=== PATIENT | female | born 1970 | race African-American/Black ===

== ENCOUNTER 2022-05-30 12:51 | Inpatient (IN) | payer BC, MEDICAID ==
[2022-05-30] VITALS (12 sets, daily range): BP systolic 105–138; BP diastolic 53–90
[~2022-05-30] VITALS: Ht 167.6 cm; Wt 72.6 kg
[2022-05-30] MEDS ORDERED: ONDANSETRON HCL 4MG/2ML INJ IV STA ×2 (14:53→16:01)
[2022-05-30] MEDS ORDERED: MORPHINE SULFATE 4 MG/ML CPJ (NOT FOR IM USE) IV STA ×2 (14:53→16:01)
[2022-05-30] MEDS ORDERED: LEVETIRACETAM 1000MG PREMIX 100 ML IV ONE (15:15)
[2022-05-30] MEDS ORDERED: DEXAMETHASONE 4MG/ML 1ML VIAL IV ONE (15:15)
[2022-05-30 15:36] LABS: HEMATOCRIT. 32.6 % (36.0-48.0); HEMOGLOBIN. 10.8 g/dL (12.0-16.0); MEAN CORPUSCULAR HEMOGLOBIN 30.7 pg (28.0-32.0); MEAN CORPUSCULAR VOLUME 93.1 fL (81.0-99.0); MEAN PLATELET VOLUME 7.5 fl (7.4-10.4); PLATELET 147 x1000/uL (130-400); RED CELL DISTRIBUTION WIDTH 18.7 % (11.6-14.6)
[2022-05-30 15:38] LABS: CHLORIDE 107 mEq/L (98-107)
[2022-05-30 15:47] LABS: PROTHROMBIN TIME 10.7 sec (9.6-11.0)
[2022-05-30 15:52] LABS: CREATINE KINASE 68 IU/L (26-192)
[2022-05-30 16:13] LABS: CLARITY URINE CLEAR (CLEAR); COLOR URINE YELLOW (YELLOW); KETONES URINE TRACE (NEGATIVE); LEUKOCYTE ESTERASE URINE NEGATIVE (NEGATIVE); NITRITE URINE NEGATIVE (NEGATIVE); OCCULT BLOOD URINE NEGATIVE (NEGATIVE); PH URINE 5.5 (4.5-8.0); PROTEIN URINE 1+ (NEGATIVE); SPECIFIC GRAVITY URINE 1.015 (1.005-1.030)
[2022-05-30] MEDS ORDERED: CLONIDINE 0.1MG TABLET PO PRN (16:15)
[2022-05-30] MEDS ORDERED: MORPHINE SULFATE 2 MG/ML CPJ (NOT FOR IM USE) IV PRN (16:15)
[2022-05-30] MEDS ORDERED: ACETAMINOPHEN 325MG TABLET PO PRN (16:15)
[2022-05-30] MEDS ORDERED: IPRATROPIUM/ALBUTEROL 0.5-3(2.5)MG/3ML NEB HHN PRN (16:15)
[2022-05-30] MEDS ORDERED: DIPHENHYDRAMINE 50MG/ML VIAL IV PRN (16:15)
[2022-05-30] MEDS ORDERED: NALOXONE HCL 0.4MG/ML VIAL IV PRN (16:15)
[2022-05-30] MEDS ORDERED: SODIUM CHLORIDE 0.9% 1,000 ML IV SCH (16:15)
[2022-05-30] MEDS ORDERED: ONDANSETRON HCL 4MG/2ML INJ IV PRN (16:15)
[2022-05-30 17:30] LABS: PLATELET ESTIMATE NORMAL
[2022-05-30] MEDS: DEXT 5%/LACTATED RINGERS 1,000 ML IV SCH (19:00)
[2022-05-30] MEDS ORDERED: LEVETIRACETAM 500MG/5ML CUP PO SCH (21:00)
[2022-05-30] MEDS ORDERED: NICARDIPINE 100 MG in SODIUM CHLORIDE 0.9% 60 ML IV PRN (21:30)
[2022-05-30] MEDS: LEVETIRACETAM 500MG PREMIX 100 ML IV SCH (22:56)
[2022-05-30] MEDS: DEXAMETHASONE 4MG/ML 1ML VIAL IV SCH (23:14)
[2022-05-31] VITALS (31 sets, daily range): BP systolic 101–135; BP diastolic 41–90
[2022-05-31] MEDS ORDERED: DEXAMETHASONE 4MG TABLET PO SCH
[2022-05-31] MEDS: DEXAMETHASONE 4MG/ML 1ML VIAL IV SCH ×3 (05:11→17:51)
[2022-05-31 05:33] LABS: BASOPHILS % 0.1 % (0.0-2.0); HEMATOCRIT. 29.2 % (36.0-48.0); HEMOGLOBIN. 9.9 g/dL (12.0-16.0); LYMPHOCYTES % 14.3 % (20.0-50.0); MEAN CORPUSCULAR HEMOGLOBIN 30.9 pg (28.0-32.0); MEAN CORPUSCULAR VOLUME 91.6 fL (81.0-99.0); MEAN PLATELET VOLUME 7.8 fl (7.4-10.4); MONOCYTES % 4.4 % (2.0-8.0); NEUTROPHILS % 81.2 % (40.0-76.0); PLATELET 133 x1000/uL (130-400); RED BLOOD CELL COUNT 3.19 mill/uL (4.2-5.4); RED CELL DISTRIBUTION WIDTH 18.4 % (11.6-14.6)
[2022-05-31 05:41] LABS: CHLORIDE 110 mEq/L (98-107)
[2022-05-31] MEDS: LEVETIRACETAM 500MG PREMIX 100 ML IV SCH (08:34)
[2022-05-31] MEDS: DEXT 5%/LACTATED RINGERS 1,000 ML IV SCH (10:58)
[2022-05-31] MEDS ORDERED: ALBUTEROL (0.083%) 2.5MG/3ML NEB HHN PRN (17:15)
[2022-05-31] MEDS ORDERED: IPRATROPIUM BROMIDE (0.02%) 0.5MG/2.5ML NEB HHN PRN (17:15)
[2022-06-01 00:30] VITALS: BP 96/57
[2022-06-01] MEDS: LEVETIRACETAM 500MG PREMIX 100 ML IV SCH ×2 (00:46→08:59)
[2022-06-01] MEDS: DEXAMETHASONE 4MG/ML 1ML VIAL IV SCH ×3 (00:46→12:20)
[2022-06-01] MEDS: DEXT 5%/LACTATED RINGERS 1,000 ML IV SCH (00:59)
[2022-06-01 04:08] VITALS: BP 112/76
[2022-06-01 06:06] LABS: BASOPHILS % 0.1 % (0.0-2.0); HEMATOCRIT. 29.2 % (36.0-48.0); HEMOGLOBIN. 9.8 g/dL (12.0-16.0); LYMPHOCYTES % 8.4 % (20.0-50.0); MEAN CORPUSCULAR HEMOGLOBIN 30.9 pg (28.0-32.0); MEAN CORPUSCULAR VOLUME 92.3 fL (81.0-99.0); MEAN PLATELET VOLUME 8.1 fl (7.4-10.4); MONOCYTES % 9.5 % (2.0-8.0); PLATELET 156 x1000/uL (130-400); RED BLOOD CELL COUNT 3.17 mill/uL (4.2-5.4); RED CELL DISTRIBUTION WIDTH 19.1 % (11.6-14.6)
[2022-06-01 07:41] LABS: CHLORIDE 110 mEq/L (98-107)
[2022-06-01 08:00] VITALS: BP 118/74
[2022-06-01] MEDS ORDERED: PANT40TA51 MT (09:37)
[2022-06-01] MEDS ORDERED: DEXA4TAB MT (09:37)
[2022-06-01] MEDS ORDERED: KEPP500 MT (09:37)
[2022-06-01 13:00] VITALS: BP 123/72
== END 2022-06-01 16:32 | disposition home or self-care (01) | DRG 54 ==
LOC: ER 12:51 → MICUSO 15:40 → EDBEDREQ 15:56 → EDBEDREQSVC 15:56 → ENRESERV 17:48 → 7WST 05-31 16:59
PROVIDERS: ADMIT Internal Medicine; ATTEND Internal Medicine
DX: C79.31 Secondary malignant neoplasm of brain (principal); G93.41 Metabolic encephalopathy; S00.93XA Contusion of unspecified part of head, initial encounter; Z85.43 Personal history of malignant neoplasm of ovary; X58.XXXA Exposure to other specified factors, initial encounter; Y93.89 Activity, other specified; Y92.89 Other specified places as the place of occurrence of the external cause; Y99.8 Other external cause status
CPT/HCPCS: 36415; 70553; 71045; 80048; 80053; 81003; 82550; 82962; 83605; 84484; 85025; 86850; 86900; 93005; 93970; 99285; J1100; J1953; J2270; J2405